=== PATIENT | female | born 1955 | race Caucasian/White ===

== ENCOUNTER 2023-03-04 15:46 | Outpatient (RCR) | payer OTHER, SELFPAY | END 2023-03-27 12:48 | disposition home or self-care (01) | LOC: PT 15:46 | PROVIDERS: PCP Family Medicine; Visit Provider Orthopaedic Surgery | DX: S46.011D Strain of muscle(s) and tendon(s) of the rotator cuff of right shoulder, subsequent encounter (principal) | CPT/HCPCS: 97110; 97140; 97162 ==